=== PATIENT | female | born 1950 | race Caucasian/White ===

== ENCOUNTER 2018-03-31 14:56 | Inpatient (IN) ==
[2018-03-31] MEDS ORDERED: Morphine Inj 4 MG/ML Vial IV.PUSH ONE (15:14)
[2018-03-31] MEDS ORDERED: Ketorolac Inj 30 MG/ML (IVP) Vial IV.PUSH ONE (15:14)
[2018-03-31] MEDS ORDERED: Sod Chloride 0.9% Inj 1,000 ML IV.SIG SCH (15:15)
--- NOTE | 2018-03-31 15:18 | ED ---
HPI General Chief complaint: Abdominal Pain Stated complaint: vomitting complaint Time Seen by Provider: 03/31/18 15:14 History of Present Illness HPI narrative: This is a 67-year-old female who presents for evaluation of right flank/right lower quadrant pain, nausea and vomiting. The patient has had pain for several days intermittently. She was seen here 2 days ago and diagnosed with a 6.6 mm stone at the right ureteral vesicular junction with hydronephrosis. She was discharged with a prescription for Flomax, declined prescription analgesics, has been using Advil. She has an appointment with urologist Dr. Terry in 2 days. She presents today because she has had worsening pain for the past 4 hours with associated nausea, vomiting. The pain is sharp, constant, no alleviating factors. Denies fevers, chills. No other complaints at this time. Related Data Home Medications Medication Instructions Recorded Confirmed amlodipine 5 mg PO DAILY 03/29/18 03/31/18 atorvastatin 10 mg PO DAILY 03/29/18 03/31/18 Previous Rx's Medication Instructions Recorded tamsulosin [Flomax] 0.4 mg PO DAILY #7 cap 03/29/18 Allergies Allergy/AdvReac Type Severity Reaction Status Date / Time No Known Allergies Allergy Verified 03/29/18 11:24 Review of Systems ROS: all other systems reviewed are negative [facility] Medical History Medical History HTN (hypertension) (Acute) Hypercholesteremia (Acute) Surgical History Surgical History H/O tubal ligation (Acute) Social History Social History Substance History: No History of Abuse Second Hand Smoke Exposure: No Smoking Status: Never smoker How Often Do You Have a Drink Containing Alcohol: Monthly or less Recent Travel in [facility] within the Last 8 Weeks: No Recent Out of Country Travel within the Last 8 Weeks: No Exam Narrative Exam Narrative: GENERAL: Pleasant well-developed well-nourished female no acute distress SKIN: Warm and dry. HEAD: Atraumatic. Normocephalic. EYES: Pupils equal and round. No scleral icterus. No injection or drainage. ENT: No nasal bleeding or discharge. Mucous membranes pink and moist. NECK: Trachea midline. No JVD. CARDIOVASCULAR: Regular rate and rhythm. No murmur appreciated. RESPIRATORY: No accessory muscle use. Clear to auscultation. Breath sounds equal bilaterally. GASTROINTESTINAL: Abdomen soft, there is tenderness to palpation of the right lower quadrant and right lower back. There is no guarding. MUSCULOSKELETAL: No obvious deformities. No clubbing. No cyanosis. No edema. NEUROLOGICAL: Awake and alert. No obvious cranial nerve deficits. Motor grossly within normal limits. Normal speech. Course Initial Documented Vital Signs Temperature 97.9 F 03/31/18 15:02 Pulse Rate 78 03/31/18 15:02 Respiratory Rate 14 03/31/18 15:02 Blood Pressure 138/80 03/31/18 15:02 Pulse Oximetry 98 03/31/18 15:02 Last Documented Vital Signs Temperature 97.9 F 03/31/18 15:02 Pulse Rate 92 H 03/31/18 17:27 Respiratory Rate 19 03/31/18 17:27 Blood Pressure 137/72 03/31/18 17:27 Pulse Oximetry 99 03/31/18 17:27 Medical Decision Making MDM Narrative Medical decision making narrative: The patient was placed on ECG monitoring pulse oximetry. An IV was established, lab work and urinalysis obtained. The patient will be given IV fluid, Toradol, morphine and Zofran. Her lab work is been reviewed. Urinalysis reveals pyuria, Rocephin initiated, urine culture pending. Her pain is somewhat improved to a 5 out of 10. I discussed the case with Dr. Terry the urologist. I discussed with the patient. At this point in time the plan is to admit the patient for intractable pain, right ureteral stone, likely will undergo urologic procedure tomorrow, npo after midnight. Discussed with Dr. Morales who is agreeable with admission. Medical Screen Exam Complete: Yes Emergency Medical Condition: Yes Differential Diagnosis Differential Diagnosis: Ureteral stone, hydronephrosis, acute kidney injury, pyelonephritis Lab Data Result diagrams: 03/31/18 15:41 03/31/18 15:41 Lab Results 03/31/18 03/31/18 03/31/18 Range/Units 15:41 15:41 15:41 WBC 9.4 (4.0-11.0) th/mm3 RBC 4.45 (4.00-5.30) mil/mm3 Hgb 13.7 (11.6-15.3) gm/dL Hct 41.7 (35.0-46.0) % MCV 93.7 (80.0-100.0) fL MCH 30.8 (27.0-34.0) pg MCHC 32.9 (32.0-36.0) % RDW 13.3 (11.6-17.2) % Plt Count 474 H (150-450) th/mm3 MPV 8.7 (7.0-11.0) fL Neut % (Auto) 70.1 H (16.0-70.0) % Lymph % (Auto) 16.3 (9.0-44.0) % [place] % (Auto) 9.6 H (0.0-8.0) % Eos % (Auto) 2.7 (0.0-4.0) % Baso % (Auto) 1.3 (0.0-2.0) % Neut # (Auto) 6.6 (1.8-7.7) th/mm3 Lymph # (Auto) 1.5 (1.0-4.8) th/mm3 [place] # (Auto) 0.9 (0.0-0.9) th/mm3 Eos # (Auto) 0.3 (0.0-0.4) th/mm3 Baso # (Auto) 0.1 (0.0-0.2) th/mm3 WBC Differential . Differential Comment Auto diff final Sodium 141 (136-145) meq/L Potassium 4.4 (3.5-5.1) meq/L Chloride 106 (98-107) meq/L Carbon Dioxide 29.0 (21.0-32.0) meq/L Anion Gap 6 (5-15) meq/L BUN 16 (7-18) mg/dL Creatinine 0.83 (0.50-1.00) mg/dL Estimated GFR 69 L (>89) mL/min Random Glucose 122 H (74-106) mg/dL Calcium 9.9 (8.5-10.1) mg/dL Magnesium 2.4 (1.5-2.5) mg/dL Urine Color Yellow (Yellw/Straw) Urine Clarity Hazy H (Clear) Urine pH 6.0 (5.0-8.5) Ur Specific [place] 1.012 (1.002-1.035) Urine Protein Negative (Neg-Trace) mg/dL Urine Glucose (UA) Negative (Negative) mg/dL Urine Ketones Negative (Negative) mg/dL Urine Occult Blood Negative (Negative) Urine Nitrate Negative (Negative) Urine Bilirubin Negative (Negative) Urine Urobilinogen Less than 2 (Less than 2) mg/dL Ur Leukocyte Esterase Moderate H (Negative) Urine RBC 3 (0-3) /hpf Urine WBC 10 H (0-5) /hpf Ur Squamous Epith Cells <1 (0-5) /hpf Amorphous Sediment Rare H (None) /hpf Urine Bacteria Rare H (None) /hpf Hyaline Casts 1 (0-3) /lpf Urine Mucus Few H (Occasional) /lpf Micro UA Comment Culture indicated Ur Microscopic Review Not Reportable Urine Culture Comments Culture indicated Discharge Plan Discharge Disposition Patient Disposition: ED Admit(ED Internal Use Only) Discharge Condition Condition: Stable Discharge Order Discharge Orders: ED Use Only Admit Order (Routine); Ordered 03/31/18 Ordered By: Arnel Fernandez Discharge Details Diagnosis: Calculus of distal right ureter, Intractable pain, Pyuria Physicians Team ED Provider: Brenton Lucero ED Midlevel Provider: Arnel Fernandez Rxs /Orders / Referrals /Forms Prescriptions: No Action atorvastatin 10 mg Tablet 10 mg PO DAILY RF: 0 amlodipine 5 mg Tablet 5 mg PO DAILY RF: 0 tamsulosin [Flomax] 0.4 mg capsule 0.4 mg PO DAILY Qty: 7 RF: 0 Status ED Status: With Doctor
[2018-03-31 16:23] LABS: Baso # (Auto) 0.1 th/mm3 (0.0-0.2); Baso % (Auto) 1.3 % (0.0-2.0); Eos # (Auto) 0.3 th/mm3 (0.0-0.4); Eos % (Auto) 2.7 % (0.0-4.0); Hematocrit 41.7 % (35.0-46.0); Hemoglobin 13.7 gm/dL (11.6-15.3); Lymph # (Auto) 1.5 th/mm3 (1.0-4.8); Lymph % (Auto) 16.3 % (9.0-44.0); Mean Corpuscular HGB Conc 32.9 % (32.0-36.0); Mean Corpuscular Hemoglobin 30.8 pg (27.0-34.0); Mean Corpuscular Volume 93.7 fL (80.0-100.0); Mean Platelet Volume 8.7 fL (7.0-11.0); Mono # (Auto) 0.9 th/mm3 (0.0-0.9); Mono % (Auto) 9.6 % (0.0-8.0); Neut # (Auto) 6.6 th/mm3 (1.8-7.7); Neut % (Auto) 70.1 % (16.0-70.0); Platelet Count 474 th/mm3 (150-450); Red Blood Count 4.45 mil/mm3 (4.00-5.30); Red Cell Distribution Width 13.3 % (11.6-17.2); White Blood Count 9.4 th/mm3 (4.0-11.0)
[2018-03-31 16:49] LABS: Amorphous Sediment,Urine Rare /hpf; Bacteria,Urine Rare /hpf; Bilirubin,Urine Negative (Negative); Calcium 9.9 mg/dL (8.5-10.1); Clarity,Urine Hazy (Clear); Color,Urine Yellow (Yellw/Straw); Glucose,Urine (UA) Negative (Negative); Hyaline Casts,Urine 1 /lpf (0-3); Leukocyte Esterase,Urine Moderate (Negative); Magnesium 2.4 mg/dL (1.5-2.5); Mucus,Urine Few /lpf (Occasional); Nitrite,Urine Negative (Negative); Potassium 4.4 meq/L (3.5-5.1); Specific Gravity,Urine 1.012 (1.002-1.035); Squamous Epithelial Cell,Urine <1 /hpf (0-5)
--- NOTE | 2018-03-31 18:11 | P.HPFP ---
History of Present Illness Primary Care Physician: Amanda Crawford History of Present Illness: 67 year old female with PMH of HBP, hypercholesterolemia presents with R sided flank pain that started last . The pain initially started in her R groin and radiated to the R flank area by Thursday. Denies any pain with urination , or bloody urine at that time. She then came to the ER Thursday, got evaluated with a CT scan that showed a 6mm stone. She was discharged her home with [facility] and referred to Dr. Terry for follow up. The pain got increasingly worse today , a 9/10 in severity, describes it as an ache that was constant and getting worse by the minute. She has been straining her urine and has not seen any sediments. Denies any history of kidney stones in the past. Denies any fevers, CP, SOB, normal bowel movements. PMH: see HPI. PSH: Heart murmur repaired at 14, tubal ligation. A: NKDA Meds: Reconciled. Social: Lives at home with . Denies any smoking of cigarettes or alcohol consumption. Denies any illicit drug use. No recent travel. Fam Hx: Mother had stroke, Father: leukemia. Brother with [place] ROS: See HPI - Diagnosis (1) Calculus of distal right ureter (2) Pyuria (3) Right flank pain, chronic (4) Hypertension (5) DVT prophylaxis (6) Nutrition, metabolism, and development symptoms PMFSH - History History Provided By: Patient - Medical History Medical History: Medical History (Last Updated 03/31/18 @ 15:19 by Marian Lopez) HTN (hypertension) Hypercholesteremia - Surgical History Surgical History: Surgical History (Last Updated 03/31/18 @ 15:19 by Marian Lopez) H/O tubal ligation - Tobacco History Second Hand Smoke Exposure: No Smoking Status: Never smoker - Alcohol History How Often Do You Have a Drink Containing Alcohol: Monthly or less - Substance Use History Substance History: No History of Abuse - Travel History Recent Travel in the [place] Within the Last 8 Weeks: No Recent Travel Out of the Country Within the Last 8 Weeks: No - Immunization History Tetanus Immunization: >5 Years Medications and Allergies Allergies Allergy/AdvReac Type Severity Reaction Status Date / Time No Known Allergies Allergy Verified 03/29/18 11:24 Home Medications Medication Instructions Recorded Confirmed Type amlodipine 5 mg PO DAILY 03/29/18 03/31/18 History atorvastatin 10 mg PO DAILY 03/29/18 03/31/18 History Exam Vital signs: Vital Signs 03/31/18 15:02 03/31/18 15:44 03/31/18 17:27 Temperature 97.9 F Pulse Rate 78 82 92 H Respiratory Rate 14 20 19 Blood Pressure 138/80 148/80 H 137/72 Pulse Oximetry 98 96 99 Intake & Output 03/30/18 03/31/18 03/31/18 18:59 06:59 18:59 Intake Total 1100 / 1100 Balance 1100 / 1100 Weight 74.843 kg Intake: IV 1100 / 1100 NS Inj 1,000 ML @ 1000 mls/hr 1000 / 1000 IV.SIG BOLUS SARA Rx#:[id number] Rocephin Inj 1,000 MG In NS Inj 100 / 100 100 ML @ 200 mls/hr IV.SIG ONCE ONE Rx#:[id number] Narrative: GENERAL: Generally appearing female, laying comfortably in bed, no acute distress. SKIN: Warm and dry. HEAD: Normocephalic. EYES: No scleral icterus. No injection or drainage. NECK: Supple, trachea midline. No JVD or lymphadenopathy. CARDIOVASCULAR: Regular rate and rhythm without murmurs, gallops, or rubs. RESPIRATORY: Breath sounds equal bilaterally. No accessory muscle use. GASTROINTESTINAL: Abdomen soft, bowel sounds present, tenderness to palpation of the right lower quadrant. MUSCULOSKELETAL: No cyanosis, or edema. BACK: Nontender without obvious deformity. Right CVA tenderness. Results - Labs Result diagrams: 03/31/18 15:41 03/31/18 15:41 Abnormal lab results 03/31/18 03/31/18 03/31/18 Range/Units 15:41 15:41 15:41 Plt Count 474 H (150-450) th/mm3 Neut % (Auto) 70.1 H (16.0-70.0) % [place] % (Auto) 9.6 H (0.0-8.0) % Estimated GFR 69 L (>89) mL/min Random Glucose 122 H (74-106) mg/dL Urine Clarity Hazy H (Clear) Ur Leukocyte Esterase Moderate H (Negative) Urine WBC 10 H (0-5) /hpf Amorphous Sediment Rare H (None) /hpf Urine Bacteria Rare H (None) /hpf Urine Mucus Few H (Occasional) /lpf Short CBC 03/31/18 Range/Units 15:41 WBC 9.4 (4.0-11.0) th/mm3 Hgb 13.7 (11.6-15.3) gm/dL Hct 41.7 (35.0-46.0) % Plt Count 474 H (150-450) th/mm3 BMP 03/31/18 15:41 Sodium 141 Potassium 4.4 Chloride 106 Carbon Dioxide 29.0 BUN 16 Creatinine 0.83 Calcium 9.9 Urine 03/31/18 Range/Units 15:41 Urine Color Yellow (Yellw/Straw) Urine Clarity Hazy H (Clear) Urine pH 6.0 (5.0-8.5) Ur Specific [place] 1.012 (1.002-1.035) Urine Protein Negative (Neg-Trace) mg/dL Urine Glucose (UA) Negative (Negative) mg/dL Caprini VTE Risk Assessment Caprini VTE Risk Assessment: Moderate/High Risk (score >= 2) Caprini Risk Assessment Model: Point Value = 1 Point Value = 2 Point Value = 3 Point Value = 5 Age 41-60 Minor surgery BMI > 25 kg/m2 Swollen legs Varicose veins or History of unexplained or recurrent spontaneous Oral contraceptives or hormone replacement Sepsis (< 1 month) Serious lung disease, including pneumonia (< 1 month) Abnormal pulmonary function Acute myocardial infarction Congestive heart failure (< 1 month) History of inflammatory bowel disease Medical patient at bed rest Age 61-74 Arthroscopic surgery Major open surgery (> 45 min) Laparoscopic surgery (> 45 min) Malignancy Confined to bed (> 72 hours) Immobilizing plaster cast Central venous access Age >= 75 History of VTE Family history of VTE Factor V Leiden Prothrombin [id number] Lupus anticoagulant Anticardiolipin antibodies Elevated serum homocysteine Heparin-induced thrombocytopenia Other congenital or acquired thrombophilia Stroke (< 1 month) Elective arthroplasty Hip, pelvis, or leg fracture Acute spinal cord injury (< 1 month) Prophylaxis Regimen: Total Risk Factor Score Risk Level Prophylaxis Regimen 0-1 Low Early ambulation 2 Moderate Order ONE of the following: *Sequential Compression Device (SCD) *Heparin 5000 units SQ BID 3-4 Higher Order ONE of the following medications: *Heparin 5000 units SQ TID *Enoxaparin/Lovenox 40 mg SQ daily (WT < 150 kg, CrCl > 30 mL/min) *Enoxaparin/Lovenox 30 mg SQ daily (WT < 150 kg, CrCl > 10-29 mL/min) *Enoxaparin/Lovenox 30 mg SQ BID (WT < 150 kg, CrCl > 30 mL/min) AND/OR *Sequential Compression Device (SCD) 5 or more Highest Order ONE of the following medications: *Heparin 5000 units SQ TID (Preferred with Epidurals) *Enoxaparin/Lovenox 40 mg SQ daily (WT < 150 kg, CrCl > 30 mL/min) *Enoxaparin/Lovenox 30 mg SQ daily (WT < 150 kg, CrCl > 10-29 mL/min) *Enoxaparin/Lovenox 30 mg SQ BID (WT < 150 kg, CrCl > 30 mL/min) AND *Sequential Compression Device (SCD) Assessment and Plan - Assessment (1) Calculus of distal right ureter Code(s): N20.1 - Calculus of ureter Status: Acute Plan: Patient presents with right-sided flank pain, diagnosed with moderate right hydronephrosis and hydroureter secondary to an obstructing calculus at the ureterovesicular junction measuring 6.6 mm on 03/29. -Patient still complains of flank pain, denies passage of stone since diagnosis. -Toradol for pain control. -Continue Flomax. -Urology consulted. Scheduled for surgery tomorrow. -N.p.o. after midnight. (2) Pyuria Code(s): N39.0 - Urinary tract infection, site not specified Status: Acute Plan: UA positive for moderate leukocyte esterase, patient is currently afebrile, denies dysuria, given 1 dose of Rocephin in the ED. - Will hold off further treatment of asymptomatic UTI. Will await urine culture for further management. (3) Right flank pain, chronic Code(s): R10.9 - Unspecified abdominal pain; G89.29 - Other chronic pain Status: Acute Plan: Toradol for pain control. Urology consulted. (4) Hypertension Code(s): I10 - Essential (primary) hypertension Status: Acute Plan: Continue home medications of amlodipine 5 mg daily. Continue atorvastatin 10 mg (5) DVT prophylaxis Status: Acute Plan: SCDs (6) Nutrition, metabolism, and development symptoms Code(s): R63.8 - Other symptoms and signs concerning food and fluid intake Status: Acute Plan: Fluids: D5, half-normal saline, KCL at 115 ml/hour Electrolytes: Monitor and replete as needed. Nutrition: Regular diet. N.p.o. after midnight.
[2018-03-31] MEDS ORDERED: Naloxone Inj 0.4 MG/ML Vial IV.PUSH PRN ×2 (18:26→19:30)
[2018-03-31] MEDS ORDERED: Acetaminophen 325 MG Tablet PO PRN (18:26)
[2018-03-31] MEDS ORDERED: Bisacodyl 10 MG Supp RECTAL PRN (18:26)
[2018-03-31] MEDS ORDERED: Ketorolac Inj 30 MG/ML (IVP) Vial IV.PUSH PRN ×2 (18:26→21:30)
[2018-03-31] MEDS ORDERED: Morphine Inj 4 MG/ML Vial IV.PUSH PRN ×3 (18:26→20:00)
[2018-03-31] MEDS: Senna/Docusate Sodium 8.6/50 MG Tablet PO SCH (20:11)
[2018-03-31] MEDS ORDERED: Metoprolol Tartrate 25 MG Tablet PO ONE (22:45)
[2018-03-31] MEDS ORDERED: Sodium Chlor 0.9% Inj 500 ML IV.CONT ONE (22:45)
[2018-03-31] MEDS ORDERED: Chlorhexidine Gluconate 2% 1 Pack (2 Cloths) TOPICAL ONE (22:45)
[2018-03-31] MEDS: KCL 20 mEq/D5W/NaCl 0.45% Inj 1,000 ML IV.CONT SCH (23:17)
[2018-04-01] MEDS: Ketorolac Inj 30 MG/ML (IVP) Vial IV.PUSH PRN ×2 (04:10→10:46)
[2018-04-01 05:35] LABS: Baso # (Auto) 0.1 th/mm3 (0.0-0.2); Baso % (Auto) 0.9 % (0.0-2.0); Eos # (Auto) 0.2 th/mm3 (0.0-0.4); Eos % (Auto) 1.4 % (0.0-4.0); Hematocrit 36.9 % (35.0-46.0); Hemoglobin 12.1 gm/dL (11.6-15.3); Lymph # (Auto) 1.9 th/mm3 (1.0-4.8); Lymph % (Auto) 15.4 % (9.0-44.0); Mean Corpuscular HGB Conc 32.8 % (32.0-36.0); Mean Corpuscular Hemoglobin 30.6 pg (27.0-34.0); Mean Corpuscular Volume 93.3 fL (80.0-100.0); Mean Platelet Volume 8.4 fL (7.0-11.0); Mono # (Auto) 1.2 th/mm3 (0.0-0.9); Mono % (Auto) 9.9 % (0.0-8.0); Neut # (Auto) 8.9 th/mm3 (1.8-7.7); Neut % (Auto) 72.4 % (16.0-70.0); Platelet Count 428 th/mm3 (150-450); Red Blood Count 3.96 mil/mm3 (4.00-5.30); Red Cell Distribution Width 13.5 % (11.6-17.2); White Blood Count 12.3 th/mm3 (4.0-11.0)
[2018-04-01 05:54] LABS: Calcium 9.4 mg/dL (8.5-10.1); Potassium 4.3 meq/L (3.5-5.1)
[2018-04-01] MEDS ORDERED: amLODIPine 5 MG Tablet PO SCH (09:00)
[2018-04-01] MEDS: Senna/Docusate Sodium 8.6/50 MG Tablet PO SCH (09:20)
[2018-04-01] MEDS: KCL 20 mEq/D5W/NaCl 0.45% Inj 1,000 ML IV.CONT SCH (09:26)
--- NOTE | 2018-04-01 11:44 | MB ---
cc: Flavio Terry DO DATE: 04/01/2018 HISTORY OF PRESENT ILLNESS: Nuris Gonzales is a pleasant 67-year-old female who presented with history of right-sided flank pain and has been in the emergency room a few times with a CT demonstrating a 6 mm x 6 mm right UVJ stone. Her initial CAT scan was on 03/29/2017. She presents again with worsening right-sided flank pain and some blood in the urine. She presently denies any fever or chills or nausea and vomiting. She denies any prior history of stones. ALLERGIES: SHE HAS NO KNOWN DRUG ALLERGIES. PAST MEDICAL HISTORY: Includes hypertension, hypercholesterolemia. PAST SURGICAL HISTORY: Tubal ligation. SOCIAL HISTORY: Denies smoking. Drinks socially. Denies any drug usage. FAMILY HISTORY: No history of stones as noted. REVIEW OF SYSTEMS: Right-sided flank pain. Denies gait disturbances, bleeding disorders, headaches, fever, chills, chest pain, shortness of breath. The remaining review of systems are reviewed and are negative. PHYSICAL EXAMINATION: VITAL SIGNS TODAY: Temperature 97.5, heart rate 76, respiratory rate 18, 140/77 is the blood pressure GENERAL: She is a well-developed, well-nourished, 67-year-old female in no acute distress. HEENT: Normocephalic, atraumatic. Pupils equal, round, reactive to light. Extraocular movements intact. NECK: Supple. HEART: Regular rate and rhythm. LUNGS: Clear. ABDOMEN: Soft. There is right-sided CVA tenderness noted. GENITOURINARY:Normal female external genitalia. EXTREMITIES: Show no evidence, clubbing, or edema. NEUROLOGIC: Cranial nerves 2 through 12 are intact. LABORATORY DATA: White count is 12.3, hemoglobin 12.1, hematocrit 36.9, platelet count of 428. Sodium 142, potassium 4.3, chloride 108, CO2 29, BUN is 16, creatinine 0.78, glucose 96. Urinalysis shows 10 white cells, 3 red cells. Urine culture is pending. DIAGNOSTIC DATA: CT scan again shows a 6 mm right UVJ stone with moderate hydronephrosis. ASSESSMENT AND PLAN: A 67-year-old female with moderate right hydronephrosis and a 6 mm - 7 mm right UVJ stone causing obstruction. Recommend cystoscopy with possible ureteroscopy, laser lithotripsy, stone extraction with possible stent insertion. Risks and benefits were discussed and the patient is willing to proceed. Continue n.p.o. for now. Thank you for the consult and allowing me to participate in the care of this patient. DO Keyanna Haas , 11:17 AM , 11:24 AM
--- NOTE | 2018-04-01 11:56 | P.PNFP ---
Subjective Interval history: Patient seen and examined this morning. No acute events overnight. Patient reports some continued pain on the right flank. Denies any other issues this morning. Denies any fever chills, chest pain, shortness of breath, nausea or vomiting, leg pain. Patient stated she discussed with urology this morning and is planning for procedure later today. Results - Labs Result diagrams: 04/01/18 04:52 04/01/18 04:52 Abnormal lab results 03/31/18 03/31/18 03/31/18 Range/Units 15:41 15:41 15:41 WBC (4.0-11.0) th/mm3 RBC (4.00-5.30) mil/mm3 Plt Count 474 H (150-450) th/mm3 Neut % (Auto) 70.1 H (16.0-70.0) % [place] % (Auto) 9.6 H (0.0-8.0) % Neut # (Auto) (1.8-7.7) th/mm3 [place] # (Auto) (0.0-0.9) th/mm3 Chloride (98-107) meq/L Estimated GFR 69 L (>89) mL/min Random Glucose 122 H (74-106) mg/dL Urine Clarity Hazy H (Clear) Ur Leukocyte Esterase Moderate H (Negative) Urine WBC 10 H (0-5) /hpf Amorphous Sediment Rare H (None) /hpf Urine Bacteria Rare H (None) /hpf Urine Mucus Few H (Occasional) /lpf 04/01/18 04/01/18 Range/Units 04:52 04:52 WBC 12.3 H (4.0-11.0) th/mm3 RBC 3.96 L (4.00-5.30) mil/mm3 Plt Count (150-450) th/mm3 Neut % (Auto) 72.4 H (16.0-70.0) % [place] % (Auto) 9.9 H (0.0-8.0) % Neut # (Auto) 8.9 H (1.8-7.7) th/mm3 [place] # (Auto) 1.2 H (0.0-0.9) th/mm3 Chloride 108 H (98-107) meq/L Estimated GFR 74 L (>89) mL/min Random Glucose (74-106) mg/dL Urine Clarity (Clear) Ur Leukocyte Esterase (Negative) Urine WBC (0-5) /hpf Amorphous Sediment (None) /hpf Urine Bacteria (None) /hpf Urine Mucus (Occasional) /lpf Short CBC 03/31/18 04/01/18 Range/Units 15:41 04:52 WBC 9.4 12.3 H (4.0-11.0) th/mm3 Hgb 13.7 12.1 (11.6-15.3) gm/dL Hct 41.7 36.9 (35.0-46.0) % Plt Count 474 H 428 (150-450) th/mm3 BMP 03/31/18 04/01/18 15:41 04:52 Sodium 141 142 Potassium 4.4 4.3 Chloride 106 108 H Carbon Dioxide 29.0 29.0 BUN 16 16 Creatinine 0.83 0.78 Calcium 9.9 9.4 Urine 03/31/18 Range/Units 15:41 Urine Color Yellow (Yellw/Straw) Urine Clarity Hazy H (Clear) Urine pH 6.0 (5.0-8.5) Ur Specific [place] 1.012 (1.002-1.035) Urine Protein Negative (Neg-Trace) mg/dL Urine Glucose (UA) Negative (Negative) mg/dL Physical Exam Vital signs: Vital Signs 03/31/18 15:02 03/31/18 15:44 03/31/18 17:27 Temperature 97.9 F Pulse Rate 78 82 92 H Respiratory Rate 14 20 19 Blood Pressure 138/80 148/80 H 137/72 Pulse Oximetry 98 96 99 03/31/18 19:10 03/31/18 20:56 03/31/18 23:42 Temperature 97.2 F L 97.7 F Pulse Rate 81 67 78 Respiratory Rate 16 17 17 Blood Pressure 141/73 H 129/68 115/58 L Pulse Oximetry 98 99 96 04/01/18 03:43 04/01/18 08:00 Temperature 98.7 F 97.5 F L Pulse Rate 78 76 Respiratory Rate 18 18 Blood Pressure 121/67 140/77 Pulse Oximetry 95 99 Intake & Output 03/31/18 04/01/18 04/01/18 18:59 06:59 18:59 Intake Total 1100 / 1100 240 / 240 Balance 1100 / 1100 240 / 240 Weight 74.843 kg 78.2 kg Intake: IV 1100 / 1100 NS Inj 1,000 ML @ 1000 mls/hr 1000 / 1000 IV.SIG BOLUS SARA Rx#:[id number] Rocephin Inj 1,000 MG In NS Inj 100 / 100 100 ML @ 200 mls/hr IV.SIG ONCE ONE Rx#:[id number] Oral 240 / 240 Other: # Voids 2 Date of Last Bowel Movement 03/30/18 03/30/18 # Bowel Movements 0 Weight On Admission 74.843 kg Narrative: GENERAL: Generally appearing female, laying comfortably in bed, no acute distress. SKIN: Warm and dry. CARDIOVASCULAR: Regular rate and rhythm without murmurs, gallops, or rubs. RESPIRATORY: Breath sounds equal bilaterally. No accessory muscle use. GASTROINTESTINAL: Abdomen soft, bowel sounds present. Mild tenderness in right abdominal area MUSCULOSKELETAL: No cyanosis, or edema. BACK: Nontender without obvious deformity. Right CVA tenderness. Assessment and Plan - Assessment (1) Calculus of distal right ureter Code(s): N20.1 - Calculus of ureter Status: Acute Plan: Patient presents with right-sided flank pain, diagnosed with moderate right hydronephrosis and hydroureter secondary to an obstructing calculus at the ureterovesicular junction measuring 6.6 mm on 03/29. -Toradol for pain control. -Continue Flomax. -Urology consulted. Scheduled for surgery today -N.p.o. for procedure (2) Pyuria Code(s): N39.0 - Urinary tract infection, site not specified Status: Acute Plan: UA positive for moderate leukocyte esterase, patient is currently afebrile, denies dysuria, given 1 dose of Rocephin in the ED. - Will hold off further treatment of asymptomatic UTI. Will await urine culture for further management. (3) Hypertension Code(s): I10 - Essential (primary) hypertension Status: Acute Plan: Continue home medications of amlodipine 5 mg daily. Continue atorvastatin 10 mg (4) DVT prophylaxis Status: Acute Plan: SCDs (5) Nutrition, metabolism, and development symptoms Code(s): R63.8 - Other symptoms and signs concerning food and fluid intake Status: Acute Plan: Fluids: D5, half-normal saline, KCL at 115 ml/hour Electrolytes: Monitor and replete as needed. Nutrition: N.p.o.
--- NOTE | 2018-04-01 12:13 | P.PNFP ---
Subjective Interval history: Attending note: Delightful 67-year-old woman admitted through the emergency room on 03/31/2018 with right flank and right lower quadrant pain nausea vomiting. Patient had been seen prior in the emergency room with similar complaints and discharged for outpatient follow-up although the severity of the pain prompted her to return. Renal stone has been documented in the ureter. Urology consultation is pending. Please refer to the resident' s H&P for complete discussion of past medical history, social history, family history and review of systems. Results - Labs Result diagrams: 04/01/18 04:52 04/01/18 04:52 Abnormal lab results 03/31/18 03/31/18 03/31/18 Range/Units 15:41 15:41 15:41 WBC (4.0-11.0) th/mm3 RBC (4.00-5.30) mil/mm3 Plt Count 474 H (150-450) th/mm3 Neut % (Auto) 70.1 H (16.0-70.0) % [place] % (Auto) 9.6 H (0.0-8.0) % Neut # (Auto) (1.8-7.7) th/mm3 [place] # (Auto) (0.0-0.9) th/mm3 Chloride (98-107) meq/L Estimated GFR 69 L (>89) mL/min Random Glucose 122 H (74-106) mg/dL Urine Clarity Hazy H (Clear) Ur Leukocyte Esterase Moderate H (Negative) Urine WBC 10 H (0-5) /hpf Amorphous Sediment Rare H (None) /hpf Urine Bacteria Rare H (None) /hpf Urine Mucus Few H (Occasional) /lpf 04/01/18 04/01/18 Range/Units 04:52 04:52 WBC 12.3 H (4.0-11.0) th/mm3 RBC 3.96 L (4.00-5.30) mil/mm3 Plt Count (150-450) th/mm3 Neut % (Auto) 72.4 H (16.0-70.0) % [place] % (Auto) 9.9 H (0.0-8.0) % Neut # (Auto) 8.9 H (1.8-7.7) th/mm3 [place] # (Auto) 1.2 H (0.0-0.9) th/mm3 Chloride 108 H (98-107) meq/L Estimated GFR 74 L (>89) mL/min Random Glucose (74-106) mg/dL Urine Clarity (Clear) Ur Leukocyte Esterase (Negative) Urine WBC (0-5) /hpf Amorphous Sediment (None) /hpf Urine Bacteria (None) /hpf Urine Mucus (Occasional) /lpf Short CBC 03/31/18 04/01/18 Range/Units 15:41 04:52 WBC 9.4 12.3 H (4.0-11.0) th/mm3 Hgb 13.7 12.1 (11.6-15.3) gm/dL Hct 41.7 36.9 (35.0-46.0) % Plt Count 474 H 428 (150-450) th/mm3 BMP 03/31/18 04/01/18 15:41 04:52 Sodium 141 142 Potassium 4.4 4.3 Chloride 106 108 H Carbon Dioxide 29.0 29.0 BUN 16 16 Creatinine 0.83 0.78 Calcium 9.9 9.4 Urine 03/31/18 Range/Units 15:41 Urine Color Yellow (Yellw/Straw) Urine Clarity Hazy H (Clear) Urine pH 6.0 (5.0-8.5) Ur Specific [place] 1.012 (1.002-1.035) Urine Protein Negative (Neg-Trace) mg/dL Urine Glucose (UA) Negative (Negative) mg/dL Physical Exam Vital signs: Vital Signs 03/31/18 15:02 03/31/18 15:44 03/31/18 17:27 Temperature 97.9 F Pulse Rate 78 82 92 H Respiratory Rate 14 20 19 Blood Pressure 138/80 148/80 H 137/72 Pulse Oximetry 98 96 99 03/31/18 19:10 03/31/18 20:56 03/31/18 23:42 Temperature 97.2 F L 97.7 F Pulse Rate 81 67 78 Respiratory Rate 16 17 17 Blood Pressure 141/73 H 129/68 115/58 L Pulse Oximetry 98 99 96 04/01/18 03:43 04/01/18 08:00 Temperature 98.7 F 97.5 F L Pulse Rate 78 76 Respiratory Rate 18 18 Blood Pressure 121/67 140/77 Pulse Oximetry 95 99 Intake & Output 01/16/19 01/17/19 01/17/19 18:59 06:59 18:59 Intake Total 1100 / 1100 240 / 240 Balance 1100 / 1100 240 / 240 Weight 74.843 kg 78.2 kg Intake: IV 1100 / 1100 NS Inj 1,000 ML @ 1000 mls/hr 1000 / 1000 IV.SIG BOLUS SARA Rx#:[id number] Rocephin Inj 1,000 MG In NS Inj 100 / 100 100 ML @ 200 mls/hr IV.SIG ONCE ONE Rx#:[id number] Oral 240 / 240 Other: # Voids 2 Date of Last Bowel Movement 03/30/18 03/30/18 # Bowel Movements 0 Weight On Admission 74.843 kg Narrative: Vital signs noted. Initially blood pressure 138/80 pulse 78 and respirations 14 temperature 97.9. General appearance: Healthy middle-aged woman with family at bedside in no acute distress. Abdomen: Soft, active bowel sounds, mild discomfort on deep palpation in the right lateral lower quadrant. No rebound referred. Please refer to resident history and physical for complete discussion of physical exam. Assessment and Plan - Assessment (1) Calculus of distal right ureter Code(s): N20.1 - Calculus of ureter Status: Acute Plan: Patient presents with right-sided flank pain, diagnosed with moderate right hydronephrosis and hydroureter secondary to an obstructing calculus at the ureterovesicular junction measuring 6.6 mm on 03/29. -Toradol for pain control. -Continue Flomax. -Urology consulted. Scheduled for surgery today -N.p.o. for procedure (2) Pyuria Code(s): N39.0 - Urinary tract infection, site not specified Status: Acute Plan: UA positive for moderate leukocyte esterase, patient is currently afebrile, denies dysuria, given 1 dose of Rocephin in the ED. - Will hold off further treatment of asymptomatic UTI. Will await urine culture for further management. (3) Hypertension Code(s): I10 - Essential (primary) hypertension Status: Acute Plan: Continue home medications of amlodipine 5 mg daily. Continue atorvastatin 10 mg (4) DVT prophylaxis Status: Acute Plan: SCDs (5) Nutrition, metabolism, and development symptoms Code(s): R63.8 - Other symptoms and signs concerning food and fluid intake Status: Acute Plan: Fluids: D5, half-normal saline, KCL at 115 ml/hour Electrolytes: Monitor and replete as needed. Nutrition: N.p.o. - Assessment and Plan Clinical assessment: Right ureteral colic secondary to distal ureteral stone, due to non-passage and symptoms urology consultation has been obtained and patient will probably have an operative extraction of the stone. Case discussed with resident team. Agree with resident orders as written for treatment plan.
[2018-04-01] MEDS ORDERED: ceFAZolin Inj 1 GM in Sodium Chlor 0.9% Inj 100 ML IV.SIG ONE (14:00)
[2018-04-01] MEDS ORDERED: fentaNYL Citrate Inj 100 MCG/2 ML Ampul ONE (16:18)
--- NOTE | 2018-04-01 16:19 | P.OP ---
- Preoperative Diagnosis (1) Hydronephrosis (2) Calculus of distal right ureter - Postoperative Diagnosis (1) Calculus of distal right ureter (2) Hydronephrosis Date of procedure: 04/01/18 Procedure: Cystoscopy, right retrograde pyelogram, right ureteroscopy, laser lithotripsy, stone extraction with right double-J stent insertion Anesthesia: RADHA Surgeon: Flavio Terry DO Estimated blood loss (mL): 0 Pathology: other (Stone fragments) Operation and Findings: 67-year-old female with history of a 6 mm right distal ureteral calculus causing obstruction with hydronephrosis. Patient has been admitted twice for her pain and decision made to bring the patient to the operating room to undergo right ureteroscopy with laser lithotripsy and stone extraction with stent insertion. Risk and benefits were discussed preoperatively and she is willing to proceed. Patient was brought to the operating room and identified by myself as Nuris Janet. She is placed in the dorsolithotomy position, prepped and draped you sterile fashion, received preprocedure antibiotics and general endotracheal tube anesthesia was administered. 22 [place] cystoscope was inserted in the bladder and decker cystoscopy did not reveal any abnormalities. A 5 [place] opening catheter was inserted into the right ureteral orifice and retrograde pyelogram was performed. Radiographic findings: Retrograde pyelogram demonstrated a stone in the distal right ureter with mild hydronephrosis. A 0.35 sensor wire was then passed through the open-ended catheter with a good curl in the kidney. The opening catheter was removed. The short rigid ureteroscope was passed into the distal ureter visualizing the stone. A 200 m laser fiber was then used to fragment up the stone in the setting of 10 and 1000. Stone fragments were retrieved with a nitinol basket. These were sent to pathology. Once the stone burden was cleared a 6 [place] 22 cm right double- J stent was placed with a good curl in the kidney and the bladder. String was then taped to the suprapubic region and will removed in the office tomorrow. The patient was awoken and extubated transferred recovery in stable condition. She tolerated procedure well.
[2018-04-01 16:54] VITALS: BP 105/70; PULSE 78; RESP 16; TEMP 98.2; O2SAT 95
[2018-04-01] MEDS ORDERED: Iohexol 300 MG/ML 50 ML Vial (for Rad Diag) IVCONTRAST ONE (17:36)
--- NOTE | 2018-04-02 14:41 | ECG ---
Date Performed: 04/01/2018 Time Performed: 11:59:28 PTAGE: 67 years EKG: Sinus rhythm NORMAL ECG NO PREVIOUS TRACING DOCTOR: Lisandro Palacios Interpretating Date/Time 04/02/2018 14:39:41
== END 2018-04-01 18:35 | disposition home or self-care (01) | DRG 661 ==
LOC: NEPE 14:56 → NEDA 14:56 → N06 20:48
PROVIDERS: ADMIT Family Medicine; ATTEND Family Medicine
CPT/HCPCS: 74420; 80048; 81001; 82365; 82370; 83735; 85025; 87086; 88300; 93005; A4646; C1769; C2617; J0131; J0690; J0696; J1885; J2270; J2405; J3010; J3480; J7030; J7120; J8501; Q9949; Q9967